=== PATIENT | female | born 1950 | race Caucasian/White ===

== ENCOUNTER 2018-12-23 09:12 | Emergency (ER) | payer MEDICARE, OTHER, SELFPAY ==
[2018-12-23 09:13] VITALS: BP 106/72; PULSE 104; RESP 16; TEMP 36.4; O2SAT 99; BMI 21.2
--- NOTE | 2018-12-23 09:31 | ED.VISSUMM ---
- ER Visit Summary Date of Service: 12/23/18 Chief Complaint: Nausea vomiting and diarrhea History of Present Illness: The patient is a 68 F who presents with nausea, vomiting, diarrhea that began last night. Patient states her stools have been watery and brown. Patient denies any melena or hematochezia. Patient states she has been having constant nausea and vomiting. Patient states her emesis is stomach contents. Patient denies any hematemesis or coffee-ground emesis. Patient denies any abdominal pain. Patient denies any fevers or chills. Patient denies any chest pain or shortness of breath. Patient denies any radiation of the pain. Patient denies any back pain. Physical Examination: Vital signs are stable except for mild tachycardia of 104. Patient is afebrile. Patient is in no acute distress. Oral mucosa is pink and moist. Neck is supple. There is no JVD noted. Heart was regular rate and rhythm. Lungs are clear and equal bilateral. Abdomen is soft. Bowel sounds are normal. There is mild diffuse tenderness. There is no rebound or guarding noted. Cranial nerves II through XII are intact. There are no focal motor or sensory deficits noted. Test Results: CBC and comprehensive metabolic profile were obtained and were essentially within normal limits. BUN was slightly elevated at 28. CT scan of the abdomen and pelvis was obtained. There is some enteritis noted. CTA of the chest was obtained because the patient began having pain in her back while she was here in the emergency department. There is no evidence of PE or aortic dissection. Emergency Department Course and Treatment: Patient was given IV fluids and Zofran here. Patient felt better on reevaluation. Patient was instructed to drink small amounts of fluids frequently. Patient was instructed to advance her diet as tolerated. Patient was instructed to follow-up with her primary care physician in 5-7 days. Patient understood and was agreeable with the plan. All questions were answered. Disposition: Discharge home Impression: 1. Vomiting and diarrhea 2. Mild dehydration This note was generated with [employer] dictation software. It may contain incorrect words, spelling, and punctuation that were not noted in review of the chart prior to signing ED Disposition - Plan for ED Patient: Disposition: Home or Assisted Living Diagnosis: Nausea vomiting and diarrhea Instructions: ED Diet Vomiting Diarrhea Referrals: [facility] Doctor,Out of [Primary Care Provider] - 3-5 Days
[2018-12-23 09:47] LABS: Absolute Lymphocyte Count 0.07 X10^3/ul (0.83-4.51); Absolute Neutrophil Count 9.5 X10^3/uL (2.0-7.7); Basophil# 0.01 X10^3/uL; Basophil% 0.1 % (0-1); Hematocrit 44.7 % (37-47); Hemoglobin 14.4 g/dl (12.0-15.0); Lymphocyte # 0.07 X10^3/ul (4.0); Lymphocyte % 0.7 % (19-41); Mean Corp Hgb Conc 32.2 g/gl (32-36); Mean Corpuscular Hgb 31.4 pg (27.0-32.0); Mean Corpuscular Volume 97.4 fL (81-99); Mean Platelet Vol. 10.3 fl (6.2-12.0); Monocyte# 0.21 X10^3/uL; Monocyte% 2.1 % (0-10); Neutrophil # 9.48 X10^3/uL (2.7-7.7); Platelet Count 187 K/mm3 (150-450); RBC Distribution Width SD 41.7 fl (35.1-43.9); Red Blood Count 4.59 M/mm3 (4.2-5.4); White Blood Count 9.8 K/mm3 (4.4-11.0)
[2018-12-23] MEDS: Ondansetron 4 MG/2 ML Vial IV (09:47)
[2018-12-23] MEDS: 0.9% Normal Saline 1,000 ML 1000 ML IV (09:47)
[2018-12-23 09:48] LABS: Differential Indicated SCAN CRITERIA MET; POSITIVE COUNT NO; POSITIVE DIFFERENTIAL YES; POSITIVE MORPHOLOGY NO
[2018-12-23 09:50] VITALS: BP 102/65; PULSE 79; RESP 19; TEMP 36.8; O2SAT 99
[2018-12-23 09:59] LABS: ALB/GLOB Ratio 0.8 RATIO (0.9-2.4); AST(SGOT) 29 U/L (15-37); Alanine Aminotransfer ALT/SGPT 20 U/L (13-56); Albumin, Serum 3.4 g/dL (3.2-5.0); Alkaline Phosphatase 93 U/L (45-117); Anion Gap 8 (5-15); BUN 28 mg/dL (7-18); BUN/Creat Ratio 29.3 RATIO (10-20); Calcium,Total 8.9 mg/dL (8.5-10.1); Chloride 108 mmol/L (98-107); Creatinine, Serum 0.96 mg/dL (0.55-1.02); EST Glomerular Filtration Rate 62 mL/min (>60); Est Glom Filt Rate - Afr Amer 75 mL/min (>60); Estimated Creatinine Clearance 51.17 ml/min; Glucose 128 mg/dL (74-106); Lipase 169 U/L (73-393); Potassium 3.9 mmol/L (3.5-5.1); Protein, Total 7.4 g/dL (6.4-8.2); Sodium Level 142 mmol/L (136-145)
--- NOTE | 2018-12-23 10:26 | CT_ITS ---
STUDY: CT ABDOMEN AND PELVIS WITH CONTRAST REASON FOR EXAM: Female, 68 years old. Nausea and vomiting since last night RADIATION DOSAGE (If Supplied By Facility): CTDIvol = ( 10.60 ) mGy, DLP = ( 836.87 ) mGycm TECHNIQUE: Transaxial images were obtained from the dome of the diaphragm to the symphysis pubis without oral contrast. Isovue 370 75ml IV was administered. Sagittal and coronal images were reconstructed. Individualized dose optimization techniques were used for this CT. COMPARISON: None FINDINGS: Bibasilar atelectasis. The visualized portions of the heart are within normal limits. There is decreased attenuation of the liver consistent with steatosis. Normal gallbladder and extrahepatic biliary system. There are multiple benign calcified granulomata of the spleen. Mild nonspecific pancreatic duct dilation. Subjacent to the pancreatic duct, there is a small cystic area measuring 8.7 mm. Otherwise, unremarkable pancreas. Normal bilateral adrenal glands. Normal right kidney. Normal left kidney. Normal visualized stomach. Scattered fluid-filled loops of small bowel without evidence of abnormal dilation. Fluid-filled loops of colon suggesting enteritis as well. There are surgical clips in the region of the appendix consistent with a prior appendectomy. Normal abdominal aorta. Normal inferior vena cava. Normal retroperitoneum. Normal urinary bladder. Normal abdominal wall. There are diffuse degenerative changes of the visualized lumbar spine. CT/Abdomen/Pelvis W IV Cont ONLY IMPRESSION: Fluid-filled loops of small large bowel suggesting enteritis. No evidence of obstruction. Status post appendectomy. Mildly dilated pancreatic duct, nonspecific. There is a small cystic structure within the tail the pancreas. Otherwise, remainder of the pancreas is within normal limits. Nonemergent pancreatic MRI or CT is recommended to further evaluate. Electronically Signed: Leobardo Alicia DO at 11:57 EDT Tel , Service support ,
--- NOTE | 2018-12-23 10:28 | CT_ITS ---
STUDY: CTA CHEST REASON FOR EXAM: Female, 68 years old. Nausea and vomiting since last night with shortness of breath RADIATION DOSAGE (If Supplied By Facility): CTDIvol = ( 10.60 ) mGy, DLP = ( 836.87 ) mGycm TECHNIQUE: The examination was performed with the intravenous administration of Isovue 370 75ml IV. Post-processing of the angiographic images was performed, with multiplanar reformation and 3D reconstruction. Individualized dose optimization techniques were used for this CT. COMPARISON: None. FINDINGS: Heterogeneously enhancing right thyroid lobe nodule measuring 2.0 x 1.8 cm. Normal enhancement of the main pulmonary artery and right and left pulmonary arteries. Normal enhancement of the bilateral peripheral pulmonary arteries. There is no demonstrated pulmonary embolism. Normal thoracic aorta and visualized great vessels. There is no demonstrated aortic dissection. Normal heart and pericardium. Normal mediastinum. Normal hilar regions. Normal visualized trachea and bronchi. The lungs are well expanded. Bibasilar atelectasis, otherwise lungs are clear. Normal pleura. Normal chest wall structures. Normal osseous structures. Normal visualized upper abdomen. CT/CTA Chest W/WO Contrast IMPRESSION: Negative for pulmonary embolism or thoracic aortic dissection. Lungs are essentially clear aside of bibasilar atelectasis. Right thyroid nodule, nonemergent thyroid ultrasound recommended to further evaluate. Electronically Signed: Leobardo Alicia DO at 12:00 EDT Tel , Service support ,
[2018-12-23] MEDS: Morphine 4 MG/ML Syringe IV (10:32)
[2018-12-23] MEDS: 0.9% Normal Saline 1,000 ML 999 ML IV (10:40)
[2018-12-23 11:32] VITALS: BP 102/57; PULSE 86; RESP 19; TEMP 37.2; O2SAT 99
[2018-12-23 12:36] LABS: Bacteria 0 SEEN /hpf (None Seen); Mucous, Urine 0 SEEN /hpf (<or=2+); Red Blood Cells-Urine 0 SEEN /hpf (0-5); Squamous Epithelial Cells - UA 0 SEEN /hpf (5-10); White Blood Cells 0 SEEN /hpf (0-5)
[2018-12-23 12:45] LABS: Color, Urine Yellow (Yellow); Glucose, Dipstick Normal (Normal); Ketone-Dipstick Negative (Negative); Leukocyte Esterase-Dipstick Negative /ul (Negative); Nitrite-Dipstick Negative (Negative); Occult Blood-Urine Negative /ul (Negative); Protein-Dipstick Negative (Negative); Urine Bilirubin Dipstick Negative (Negative); Urine Clarity Sl. Cloudy (Clear); Urine Urobilinogen Normal (Normal)
[2018-12-23 12:47] VITALS: BP 94/53; PULSE 77; RESP 16; O2SAT 98
[2018-12-23 13:50] VITALS: BP 134/77; PULSE 62; RESP 15; O2SAT 98
== END 2018-12-23 13:51 | disposition home or self-care (01) ==
PROVIDERS: Emergency Provider Emergency Medicine
DX: R11.2 Nausea with vomiting, unspecified (principal); R19.7 Diarrhea, unspecified; E86.0 Dehydration; D70.9 Neutropenia, unspecified; E06.3 Autoimmune thyroiditis; Z79.82 Long term (current) use of aspirin; Z79.899 Other long term (current) drug therapy
CPT/HCPCS: 71275; 74177; 80053; 81001; 83690; 85025; 96361; 96374; 96375; 99283; J7030; Q9967; A4216; J2405

== ENCOUNTER → 2020-03-16 08:16 | Outpatient (CLI) | payer MEDICARE, OTHER, SELFPAY ==
--- NOTE | 2020-03-16 08:24 | US_ITS ---
STUDY: THYROID ULTRASOUND REASON FOR EXAM: Female, 69 years old. GOITER TECHNIQUE: Ultrasound evaluation of the thyroid was performed with real-time and static keating-scale imaging. COMPARISON: Comparison is made with prior CT scan of the thorax dated December 23, 2018. FINDINGS: RIGHT LOBE: The right lobe of the thyroid gland measures 4.4 cm x 2.7 cm x 2.5 cm. There is a heterogeneous echotexture. There is a 3.4 cm x 2.4 cm x 1.8 cm hypoechoic solid nodule in the midportion of the right lobe. There is also evidence of 2 smaller solid nodules measuring 1.1 cm x 1 cm x 0.8 cm and 0.7 cm x 0.6 cm x 0.6 cm. LEFT LOBE: The left lobe of the thyroid gland measures 3.7 cm x 1.3 cm x 1.1 cm. There is a heterogeneous echotexture. There are no demonstrated solid, cystic or complex lesions. ISTHMUS: The isthmus measures 2.0 mm. The regional lymph nodes are normal. US/Thyroid IMPRESSION: 3.4 cm x 2.4 cm x 1.8 cm solid nodule in the midportion of the right lobe of the thyroid as described. Biopsy recommended. Electronically Signed: Christopher Velazquez, at 9:01 EDT , Service support ,
== END ==
PROVIDERS: Referring Provider Internal Medicine Endocrinology, Diabetes & Metabolism; Visit Provider Internal Medicine Endocrinology, Diabetes & Metabolism
DX: E04.2 Nontoxic multinodular goiter (principal)
CPT/HCPCS: 76536

== ENCOUNTER → 2021-02-23 12:30 | Outpatient (CLI) | payer MEDICARE, OTHER, SELFPAY ==
--- NOTE | 2021-02-23 12:36 | US_ITS ---
STUDY: THYROID ULTRASOUND REASON FOR EXAM: Female, 70 years old. NODULE TECHNIQUE: Ultrasound evaluation of the thyroid was performed with real-time and static keating-scale imaging. COMPARISON: 03/16/2020 FINDINGS: RIGHT LOBE: The right lobe of the thyroid gland measures 4.3 x 2.9 x 2.6 cm. There is a heterogeneous echotexture. 3 separate stable nodules, largest is complex measuring 3.2 x 2.3 x 1.8 cm. LEFT LOBE: The left lobe of the thyroid gland measures 3.6 x 1.2 x 1.5 cm. There is a heterogeneous echotexture. There are no demonstrated solid, cystic or complex lesions. ISTHMUS: The isthmus measures 3 mm. The regional lymph nodes are normal. US/Thyroid IMPRESSION: Stable heterogeneous thyroid gland with stable nodules in the right lobe. Largest measures 3.2 cm. No change since the previous study, yearly follow-up recommended to assure stability Electronically Signed: Jonathan Tsai MD at 13:38 EDT , Service support ,
== END ==
PROVIDERS: Referring Provider Internal Medicine Endocrinology, Diabetes & Metabolism; Visit Provider Internal Medicine Endocrinology, Diabetes & Metabolism
DX: E04.2 Nontoxic multinodular goiter (principal)
CPT/HCPCS: 76536

== ENCOUNTER → 2021-03-30 16:13 | Outpatient (CLI) | payer MEDICARE, OTHER, SELFPAY ==
--- NOTE | 2021-03-30 17:30 | MRI_ITS ---
STUDY: MRI RIGHT KNEE REASON FOR EXAM: Female, 70 years old. Pain. TECHNIQUE: Standardized fat and water weighted pulse sequences were obtained in all 3 orthogonal planes. COMPARISON: None. FINDINGS: Medial meniscus tear of the posterior horn adjacent to the meniscal root, series 6 image 09/04. There is delamination extending to the body of the meniscus. There is diffuse, greater than 50% thickness articular cartilage loss of the medial femorotibial compartment. There is mild osteoarthritic spur formation of the medial knee compartment. There is reactive marrow edema of the medial tibial plateau. Normal medial collateral ligamentous complex (MCL). Normal distal semimembranosus, gracilis and semitendinosus tendons. Normal lateral meniscus. Normal hyaline cartilage of the lateral femorotibial compartment. Normal lateral femoral condyle and tibial plateau. Normal proximal tibiofibular articulation. Normal lateral collateral (fibular) ligament. Normal popliteus tendon. Normal biceps femoris tendon. Normal anterior cruciate ligament (ACL). Normal posterior cruciate ligament (PCL). There is arthrosis of the patellofemoral articulation. There is diffuse, greater than 50% thickness articular cartilage loss of the patellofemoral compartment. Mild spurring and subchondral edema. Normal medial and lateral patellar retinaculum. Normal quadriceps tendon. Normal patellar tendon. Normal Hoffa''s fat pad. There is a small volume joint effusion. There is a 2.7 cm Dhaliwal''s cyst. The soft tissues are unremarkable. The otherwise visualized osseous structures are unremarkable. MRI/Lower Ext Joint Only (Routine) IMPRESSION: Medial meniscus tear. Degenerative change. Stress injury of the medial tibial plateau. Joint effusion with popliteal cyst. Electronically Signed: Nael Cook MD at 15:59 EDT , Service support ,
== END ==
PROVIDERS: Referring Provider Orthopaedic Surgery Adult Reconstructive Orthopaedic Surgery; Visit Provider Orthopaedic Surgery Adult Reconstructive Orthopaedic Surgery
DX: M17.11 Unilateral primary osteoarthritis, right knee (principal)
CPT/HCPCS: 73721

== ENCOUNTER 2024-09-08 17:38 | Emergency (ER) | payer MEDICARE, SELFPAY ==
[2024-09-08 17:39] VITALS: BP 147/91; PULSE 90; RESP 16; TEMP 36.3; O2SAT 100; BMI 21.8
--- NOTE | 2024-09-08 18:58 | ED.VIS.GI ---
HPI HPI - GI History of Present Illness Chief Complaint: GI Bleed Informant: patient and spouse/S.O. Narrative Narrative: 73-year-old female history of internal hemorrhoids on no blood thinners. States for last 2 weeks she has had intermittent rectal bleeding. Had a pretty significant episode 2 weeks ago. A week ago saw her GI doctor Dr. Jimenez from the [facility]. They have her scheduled for an outpatient elective colonoscopy in late October around the . She states she has had recurrent heavier bleeding worse today. She is on no blood thinners not even aspirin. She denies any pain. No black stools. She did have an episode on Friday of nausea vomiting diarrhea which she thinks flared this up. Prior similar symptoms: Yes Recent Illness/Hospitalization: No PFSH PFSH Home Medications ?Medication ?Instructions ?Recorded ?Last Taken ?Type Lactobacillus acidophilus 10 1 capsule PO DAILY 12/23/18 Unknown History billion cell capsule (Probiotic) aspirin 325 mg tablet 325 mg PO DAILY 12/23/18 Unknown History azithromycin 250 mg tablet 250 mg PO BID 12/23/18 Unknown History cevimeline 30 mg capsule 30 mg PO DAILY 12/23/18 Unknown History cholecalciferol (vitamin D3) 50 2,000 unit PO DAILY 12/23/18 Unknown History mcg (2,000 unit) tablet (Vitamin D3) flaxseed oil 1,000 mg capsule 1,200 mg PO DAILY 12/23/18 Unknown History levothyroxine 25 mcg tablet 50 mcg PO DAILY 12/23/18 Unknown History minocycline 100 mg capsule 100 mg PO BID 12/23/18 Unknown History multivitamin,bj-emfd-[id number] 27 1 tab PO DAILY 12/23/18 Unknown History mg-0.4 mg tablet (Therems-M) potassium 99 mg tablet 99 mg PO DAILY 12/23/18 Unknown History Allergy/AdvReac Type Severity Reaction Status Date / Time No Known Allergies Allergy Verified 09/08/24 17:41 Social History Smoking Status: Never smoker ROS ROS ED ROS Narrative Rectal bleeding. Constitutional Constitutional ED: Denies chills or fever(s) ENT ENT ED: Denies ear pain Cardiovascular Cardiovascular: Denies chest pain Respiratory/Chest Respiratory/Chest: Denies cough Gastrointestinal Gastrointestinal: Reports diarrhea, nausea and vomiting; Denies abdominal pain Genitourinary Genitourinary ED: Denies dysuria or hematuria Musculoskeletal Musculoskeletal: Denies arthralgias Integumentary Denies abscess Neurologic Neurologic: Denies headache(s) Psychiatric Psychiatric: Denies anxiety Endocrine Endocrinology: Denies polydipsia Hematologic/Lymphatic Hematologic/Lymphatic: Denies lymphadenopathy Allergic/Immunologic Allergic/Immunologic ED: Denies mouth swelling, tongue swelling or urticaria EXAM Physical Exam Narrative Exam Narrative: Well-appearing 73-year-old female. Vital signs are stable. She is afebrile. She does not look septic or toxic. Her blood pressure is 147 and 91 heart rate is 90. present in room. H EENT exam unremarkable. Neck nontender. Lungs clear. Heart regular rhythm no murmur. Rate about 90. Chest wall ribs nontender. Abdomen soft nontender. Moving all 4 extremities. Normal strength. No edema. She is awake and alert. present in the room patient laying on her side her anal exam shows an internal hemorrhoid basically partially sticking out of her anus. There is a small amount of blood no large clots at this time. She does not have external hemorrhoids. No melanotic stool. She is awake and alert. No focal motor deficits. Const Vital Signs: 09/08/24 17:39 09/08/24 20:05 Temperature 97.3 F L Temperature Source Oral Pulse Rate 90 82 Respiratory Rate 16 18 Blood Pressure 147/91 H 123/66 H Blood Pressure Mean 109 85 Pulse Ox 100 Oxygen Delivery Method Room Air Room Air Positive well nourished and well developed; Negative for obese, cachectic, contractures or unkempt General Appearance ED: well developed and NAD; Negative for unkempt, cachectic, contractures or pallor Nutritional Appearance: Negative for cachectic or obese HEENT Reports moist mucous membranes normocephalic and atraumatic; Negative for trauma or tenderness Eyes PERRL and EOMs intact bilaterally General Eye ED: Negative for pale conjunctiva or scleral icterus Neck no lymphadenopathy, supple and no JVD General: Negative for tenderness Lymph Lymphatic: Negative for other Resp normal respiratory effort and clear to auscultation bilaterally Effort and Inspection: Negative for respiratory distress Auscultation: Negative for rales, rhonchi, wheezes or diminished lung sounds Cardio regular rate, regular rhythm, S1 normal heart sound, S2 normal heart sound and no murmurs Rate: Negative for bradycardia or tachycardic Rhythm: Negative for abnormal rhythm GI non-tender, non-distended and no masses Inspection: Negative for abdominal distention Auscultation: normoactive bowel sounds Palpation: soft; Negative for tender or guarding Back/Spine no CVA tenderness Extremity full ROM General Extremety ED: Negative for edema or tenderness General Extremity: Negative for edema Neuro CN's II-XII intact bilaterally and moves all extremities Sensorium / Orientation: alert, oriented to person, oriented to place and oriented to time Motor Exam: strength 5/5 throughout Psych mental status grossly normal and thought process normal Appearance: Negative for unkempt Attitude: No agitated Mood & Affect: Negative for depressed, anxious or tearful Skin no wounds General Skin Exam: Negative for jaundice or pallor Lesions: no lesions Rashes: no rashes Trauma: Negative for abrasion Nails: Negative for discolored MDM MDM MDM Narrative Medical decision making narrative: 73-year-old female history of internal hemorrhoids on no blood thinners. Last colonoscopy was 2 years ago and unremarkable. States that she has had bright red blood per rectum intermittently for the last 2 weeks. With a history of internal hemorrhoids. There is an internal hemorrhoid seen at the anal verge. Blood cannot be obtained. The question will be can she follow-up again outpatient colonoscopy more recently than the one that she is scheduled 50 days from now or that she has to be admitted for this. Repeat exam patient doing well at 9:04 PM. We discussed her test results. Her bleeding is resolved. Clinically looks well. She is more than comfortably and discharged home. She should have follow-up with both her GI physician she is established with in [place] and try our GI office tomorrow morning. I have them on page to give him the referral to see if they can get her in this week to possibly set her up for a internal hemorrhoid banding procedure. She knows return if she has heavier bleeding. History & Record Review Discussion w/independent historian: Patient Lab Data Attestation: I reviewed the patient's lab results. Lab results narrative: CBC shows white count 3.9 she has a chronic history of leukopenia. H&H 12.6 and 38. Platelets 210. BMP unremarkable. Gap 4. BUN of 18 creatinine 1.1. Glucose 105. Labs are consistent with prior. Labs: Laboratory Results - last 24 hr 09/08/24 19:50 WBC 3.9 L RBC 3.99 L Hgb 12.6 Hct 38.3 MCV 96.0 MCH 31.6 MCHC 32.9 RDW Std Deviation 43.4 RDW Coeff of Delmis 12.2 Plt Count 210 MPV 9.4 Sodium 141 Potassium 3.9 Chloride 107 Carbon Dioxide 30.0 Anion Gap 4 L BUN 18 Creatinine 1.10 H Estim Creat Clear Calc 39.92 Est GFR (MDRD) Af Amer 63 Est GFR (MDRD) Non-Af 52 L BUN/Creatinine Ratio 16.4 Glucose 105 Calcium 9.8 Discharge Plan Triage Chief Complaint: GI Bleed ED Provider: Mehran Kwok Dx/Rx/DC Orders Clinical Impression: Acute lower gastrointestinal bleeding, Bleeding internal hemorrhoids Instructions: ED Lower GI Bleeding (Stable) Prescriptions: No Action azithromycin 250 MG tablet 250 mg PO BID Rx Instructions: EVERY OTHER DAY aspirin 325 MG tablet 325 mg PO DAILY minocycline 100 MG capsule 100 mg PO BID levothyroxine 25 MCG tablet 50 mcg PO DAILY flaxseed oil 1,000 MG capsule 1,200 mg PO DAILY potassium 99 MG tablet 99 mg PO DAILY cevimeline 30 MG capsule 30 mg PO DAILY multivitamin,[id number]-[id number] [Therems-M] 1 TABLET tablet 1 tab PO DAILY cholecalciferol (vitamin D3) [Vitamin D3] 2,000 UNIT tablet 2,000 unit PO DAILY Lactobacillus acidophilus [Probiotic] 1 EACH capsule 1 capsule PO DAILY Primary Care Provider: GEE CUADRA Referrals: GEE CUADRA [Other] Activity Restrictions/Additional Instructions: Call your GI physician in [place] tomorrow morning. Tell them you have had recurrent bleeding. Your blood counts are stable but see if there is a way they can move up your colonoscopy and hemorrhoid banding to this week or even next. Return to the emergency department if your bleeding progressively gets worse. Warm soaks in the bathtub. Preparation H hemorrhoidal cream. Print Language: Mohawk Disposition Disposition: Home, Self Care
[2024-09-08 19:56] LABS: Hematocrit 38.3 % (37-47); Hemoglobin 12.6 g/dL (12.0-15.0); Mean Corp Hgb Conc 32.9 g/dL (32-36); Mean Corpuscular Hgb 31.6 pg (27.0-32.0); Mean Platelet Vol. 9.4 fl (6.2-12.0); Platelet Count 210 K/mm3 (150-450); RBC Distribution Width CV 12.2 % (11.6-14.6); RBC Distribution Width SD 43.4 fl (35.1-43.9); Red Blood Count 3.99 M/mm3 (4.2-5.4); White Blood Count 3.9 K/mm3 (4.4-11.0)
[2024-09-08 20:05] VITALS: BP 123/66; PULSE 82; RESP 18
[2024-09-08 20:11] LABS: Anion Gap 4 (5-15); BUN 18 mg/dL (7-18); BUN/Creat Ratio 16.4 RATIO (10-20); Calcium,Total 9.8 mg/dL (8.5-10.1); Chloride 107 mmol/L (98-107); EST Glomerular Filtration Rate 52 mL/min (>60); Est Glom Filt Rate - Afr Amer 63 mL/min (>60); Estimated Creatinine Clearance 39.92 ml/min; Glucose 105 mg/dL (74-106); Potassium 3.9 mmol/L (3.5-5.1); Sodium Level 141 mmol/L (136-145)
== END 2024-09-08 21:19 | disposition home or self-care (01) ==
PROVIDERS: Emergency Provider Emergency Medicine; Visit Provider Emergency Medicine
DX: K64.8 Other hemorrhoids (principal); Z79.82 Long term (current) use of aspirin; Z79.890 Hormone replacement therapy; Z79.899 Other long term (current) drug therapy
CPT/HCPCS: 80048; 85027; 99283